=== PATIENT | male | born 1970 | race African-American/Black ===

== ENCOUNTER 2019-01-17 12:05 | Emergency (ER) | payer MEDICAID ==
[~2019-01-17] VITALS: Ht 172.7 cm; Wt 116.0 kg
[2019-01-17 14:30] VITALS: BP 144/72
== END 2019-01-17 14:33 | disposition home or self-care (01) ==
LOC: ER 12:05
DX: M70.51 Other bursitis of knee, right knee (principal); Y93.89 Activity, other specified; J45.909 Unspecified asthma, uncomplicated; I10 Essential (primary) hypertension
CPT/HCPCS: 99283

== ENCOUNTER 2019-11-06 09:30 | Emergency (ER) | payer MEDICAID ==
[~2019-11-06] VITALS: Ht 172.7 cm; Wt 111.0 kg
[2019-11-06] MEDS ORDERED: ACETAMINOPHEN 325MG TABLET PO ONE (10:30)
[2019-11-06 11:18] VITALS: BP 148/78
== END 2019-11-06 11:22 | disposition home or self-care (01) ==
LOC: ER 09:30
DX: M25.561 Pain in right knee (principal); M79.89 Other specified soft tissue disorders
CPT/HCPCS: 73562; 99283; L1830

== ENCOUNTER 2021-08-04 15:39 | Emergency (ER) | payer MEDICAID ==
[~2021-08-04] VITALS: Ht 175.3 cm; Wt 109.0 kg
[2021-08-04 15:57] VITALS: BP 158/76
[2021-08-04] MEDS ORDERED: NAPR-681 MT (16:00)
[2021-08-04] MEDS ORDERED: KETOROLAC 60MG/2ML VIAL IM ONE (16:00)
== END 2021-08-04 16:32 | disposition home or self-care (01) ==
LOC: ER 15:39
DX: M25.532 Pain in left wrist (principal); I10 Essential (primary) hypertension
CPT/HCPCS: 73110; 96372; 99283; J1885

== ENCOUNTER 2022-06-27 11:57 | Emergency (ER) | payer MEDICAID ==
[~2022-06-27] VITALS: Ht 167.6 cm; Wt 90.0 kg
[~2022-06-27 11:57] MED LIST: NAPR-681 MT
[2022-06-27 12:06] VITALS: BP 176/108
== END 2022-06-27 16:31 | disposition left against medical advice (07) ==
LOC: ER 11:57
DX: Z53.21 Procedure and treatment not carried out due to patient leaving prior to being seen by health care provider (principal)